=== PATIENT | male | born 2000 | race Caucasian/White ===

== ENCOUNTER 2022-07-23 05:44 | Emergency (ER) | payer OTHER, MEDICAID, SELFPAY ==
[2022-07-23] VITALS (44 sets, daily range): BP systolic 102–148; BP diastolic 56–93; PULSE 71–129; RESP 14–50; TEMP 32–37; O2SAT 89–100; BMI 44.8
--- NOTE | 2022-07-23 06:42 | DI.RAD.S_ITS ---
PROCEDURE: XR CHEST 1V INDICATIONS: SOB TECHNIQUE: One view of the chest was acquired. COMPARISON: None. FINDINGS: Surgical changes and devices: None. Lungs and pleura: Extensive airspace opacities are noted throughout right lung more prominent in right lower lobe. No significant pleural effusions or pneumothorax. Mediastinum: Mediastinal contours appear normal. Heart size is markedly enlarged. Bones and chest wall: No suspicious bony lesions. Overlying soft tissues appear unremarkable. IMPRESSION: Suggestion of multilobar infiltrates involving right lung. No significant pleural effusion or gross pneumothorax. Cardiomegaly. Dictated by: Massimo Yu M.D. on 07/23/2022 at 7:49 Approved by: Massimo Yu M.D. on 07/23/2022 at 7:50
--- NOTE | 2022-07-23 08:26 | ED.SOB ---
HPI - SOB/Dyspnea General Chief Complaint: Shortness of Breath/Dyspnea Stated Complaint: SOB for few weeks, R foot swelling Time Seen by Provider: 07/23/22 06:41 Source: patient and family Mode of arrival: Ambulatory Limitations: no limitations History of Present Illness HPI Narrative: Patient is a 21-year-old male who presents with increasing shortness of breath with exertion ongoing for about a month. He says it started off with what he thought was just cold however at work he has noticed he has significant shortness of breath with exertion and orthopnea. 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 He is also noticed that his right leg is swollen. He denies any recent travel fevers chills or sweats. He is on methylprednisone along with an albuterol inhaler. He reports the methylprednisone seems to be working. However he is noted to be quite tachycardic here in the ED heart rate 115-120. He denies any chest pain. Denies any drug use Related Data Home Medications Medication Instructions Recorded Confirmed No Known Home Medications 07/23/22 07/23/22 Allergies Allergy/AdvReac Type Severity Reaction Status Date / Time No Known Drug Allergies Allergy Verified 07/23/22 09:22 Review of Systems Review of Systems ROS Unobtainable: All systems reviewed & are unremarkable except as noted in HPI and below Patient History Social History Smoking Status: Never smoker Smoking Status: Never smoker Substance Use Type: does not use Exam Initial Vital Signs Initial Vital Signs: Vital Signs Temperature 98.6 F 07/23/22 05:58 Pulse Rate 115 H 07/23/22 05:58 Respiratory Rate 24 07/23/22 05:58 Blood Pressure 124/79 07/23/22 05:58 Pulse Oximetry 95 07/23/22 05:58 Oxygen Delivery Method Room Air 07/23/22 05:58 GENERAL: Alert 21-year-old male and in no acute distress. HEENT: Head atraumatic,EOMI, pupils reactive, face symmetric, moist mucous membranes CARDIOVASCULAR: Tachycardic regular RESPIRATORY: Breath sounds equal bilaterally, no wheezes rales or rhonchi. No conversational dyspnea ABDOMEN: Soft, nontender. Normoactive bowel sounds all 4 quadrants. No guarding or rebound. : No CVA tenderness EXTREMITIES: Normal range of motion, no clubbing. Right foot is noted to be swollen but no calf pain distal pedal pulse intact Neurovascularly intact NEUROLOGICAL: Alert and oriented x4.Normal gait and speech. Cranial nerves II through XII grossly intact. SKIN: Warm, dry, no laceration, no petechiae, no rashes or lesions. Course Orders Ordered: ED Orders 07/23/22 09:54 CT angio chest PE protocol Stat 07/23/22 11:16 Blood Culture Stat 07/23/22 11:30 EC echo doppler complete Stat 07/23/22 11:31 Trop I [Troponin I] Stat 07/23/22 14:25 Respiratory Panel (Film Array) Stat 07/23/22 15:02 Urine Drug Screen, Rapid Stat Discontinued Medications Albuterol/Ipratropium (Albuterol/Ipratropium 3 Ml Ampul) 3 ml INH NOW ONE Stop: 07/23/22 08:27 Last Admin: 07/23/22 08:48 Dose: 3 ml Documented By: MONICA Furosemide (Furosemide 40 Mg/4 Ml Vial) 40 mg IV NOW ONE Stop: 07/23/22 12:12 Last Admin: 07/23/22 12:50 Dose: 40 mg Documented By: NR Sodium Chloride (Normal Saline 0.9%) 1,000 mls @ 1,000 mls/hr IV BOLUS ONE Stop: 07/23/22 09:25 Last Infusion: 07/23/22 11:20 Dose: 0 mls/hr Documented By: Admin: 07/23/22 09:22 Dose: 1,000 mls/hr Documented By: CARLOS ALBERTO Ceftriaxone Sodium 2,000 mg/ (Sodium Chloride) 100 mls @ 200 mls/hr IV NOW ONE Stop: 07/23/22 11:01 Last Infusion: 07/23/22 12:07 Dose: 0 mls/hr Documented By: Admin: 07/23/22 11:28 Dose: 200 mls/hr Documented By: NR Azithromycin 500 mg/ Dextrose 250 mls @ 250 mls/hr IV NOW ONE Stop: 07/23/22 11:01 Last Infusion: 07/23/22 13:55 Dose: 0 mls/hr Documented By: Admin: 07/23/22 12:49 Dose: 250 mls/hr Documented By: NR Vital Signs Vital signs: Vital Signs - 8 hr 07/23/22 10:30 07/23/22 10:32 07/23/22 10:32 Pulse Rate 116 H 117 H Respiratory Rate 34 H 39 H Blood Pressure 102/73 Pulse Oximetry 93 93 Oxygen Delivery Method Fraction of Inspired Oxygen 07/23/22 11:00 07/23/22 11:01 07/23/22 11:01 Pulse Rate 117 H 117 H Respiratory Rate 28 H 30 H Blood Pressure 124/78 Pulse Oximetry 94 93 Oxygen Delivery Method Fraction of Inspired Oxygen 07/23/22 11:30 07/23/22 12:00 07/23/22 12:30 Pulse Rate 119 H 119 H Respiratory Rate 36 H 29 H Blood Pressure 125/88 Pulse Oximetry 93 92 Oxygen Delivery Method Fraction of Inspired Oxygen 07/23/22 12:30 07/23/22 12:45 07/23/22 12:45 Pulse Rate 116 H 115 H Respiratory Rate 32 H 39 H Blood Pressure 126/68 Pulse Oximetry 92 93 Oxygen Delivery Method Room Air Fraction of Inspired Oxygen 07/23/22 13:00 07/23/22 13:00 07/23/22 13:15 Pulse Rate 126 H Respiratory Rate 43 H Blood Pressure 140/70 130/68 Pulse Oximetry 89 L Oxygen Delivery Method Room Air Fraction of Inspired Oxygen 07/23/22 13:15 07/23/22 13:30 07/23/22 13:30 Pulse Rate 123 H 127 H Respiratory Rate 30 H 39 H Blood Pressure 107/65 Pulse Oximetry 95 95 Oxygen Delivery Method Fraction of Inspired Oxygen 07/23/22 14:11 07/23/22 13:46 07/23/22 13:46 Pulse Rate 129 H Respiratory Rate Blood Pressure 107/65 105/56 L Pulse Oximetry 96 Oxygen Delivery Method Fraction of Inspired Oxygen 30 07/23/22 14:00 07/23/22 14:16 07/23/22 14:16 Pulse Rate 123 H 124 H Respiratory Rate Blood Pressure 148/77 H Pulse Oximetry 97 96 Oxygen Delivery Method BiPAP Fraction of Inspired Oxygen 07/23/22 14:30 07/23/22 14:46 07/23/22 14:46 Pulse Rate 122 H 121 H Respiratory Rate 50 H 34 H Blood Pressure 117/70 Pulse Oximetry 97 Oxygen Delivery Method Fraction of Inspired Oxygen 07/23/22 15:00 07/23/22 15:01 07/23/22 15:01 Pulse Rate 120 H 121 H Respiratory Rate 44 H 45 H Blood Pressure 119/86 Pulse Oximetry 96 97 Oxygen Delivery Method Fraction of Inspired Oxygen 07/23/22 15:15 07/23/22 15:15 07/23/22 15:29 Pulse Rate 118 H Respiratory Rate 36 H Blood Pressure 120/63 120/63 Pulse Oximetry 100 Oxygen Delivery Method Fraction of Inspired Oxygen 30 07/23/22 15:30 07/23/22 15:30 07/23/22 15:45 Pulse Rate 119 H 118 H Respiratory Rate 35 H 41 H Blood Pressure 120/59 L Pulse Oximetry 98 96 Oxygen Delivery Method Fraction of Inspired Oxygen 07/23/22 15:45 07/23/22 16:00 07/23/22 16:00 Pulse Rate 117 H Respiratory Rate 22 Blood Pressure 113/61 119/70 Pulse Oximetry 97 Oxygen Delivery Method Fraction of Inspired Oxygen 07/23/22 16:15 07/23/22 16:15 07/23/22 16:30 Pulse Rate 113 H Respiratory Rate 25 H Blood Pressure 107/76 110/72 Pulse Oximetry 97 Oxygen Delivery Method Fraction of Inspired Oxygen 07/23/22 16:30 07/23/22 16:46 07/23/22 16:46 Pulse Rate 114 H 117 H Respiratory Rate 24 32 H Blood Pressure 122/62 Pulse Oximetry 97 98 Oxygen Delivery Method Fraction of Inspired Oxygen 07/23/22 17:00 07/23/22 17:13 07/23/22 17:13 Pulse Rate 117 H 117 H Respiratory Rate 24 Blood Pressure 110/77 Pulse Oximetry 97 99 Oxygen Delivery Method Fraction of Inspired Oxygen 07/23/22 17:15 07/23/22 17:15 07/23/22 17:30 Pulse Rate 117 H Respiratory Rate Blood Pressure 108/86 109/85 Pulse Oximetry 97 Oxygen Delivery Method Fraction of Inspired Oxygen 07/23/22 17:30 Pulse Rate 116 H Respiratory Rate Blood Pressure Pulse Oximetry 96 Oxygen Delivery Method Fraction of Inspired Oxygen MDM - SOB/Dyspnea Lab Data 07/23/22 08:50 07/23/22 08:50 Labs: Lab Results 07/23/22 07/23/22 07/23/22 Range/Units 08:50 08:50 08:50 WBC 12.6 H (4.5-11.0) X10^3/uL RBC 4.80 (4.5-5.9) X10^6/uL Hgb 14.3 (13.5-17.5) g/dL Hct 41.9 (41-53) % MCV 87.2 (80-100) fL MCH 29.8 (26-34) PG MCHC 34.2 (30-36) % RDW 14.2 (11.6-14.8) % Plt Count 442 H (150-400) X10^3/uL Neut % (Auto) 88.0 H (50-75) % Lymph % (Auto) 7.6 L (25-40) % [place] % (Auto) 3.8 (3-14) % Eos % (Auto) 0.4 L (2-4) % Baso % (Auto) 0.2 (0-2) % Neut # (Auto) 89080 H (4681-0376) /uL Lymph # (Auto) 1000 L (3896-0053) /uL [place] # (Auto) 500 (0-900) /uL Eos # (Auto) 0 (0-450) /uL Baso # (Auto) 0 (0-100) /uL D-Dimer 656 H (<500) ng/ml Sodium 139 (137-145) mmol/L Potassium 4.2 (3.4-5.1) mmol/L Chloride 108 H (98-107) mmol/L Carbon Dioxide 24 (22-32) mmol/L BUN 22 H (9-20) mg/dL Creatinine 0.85 (0.66-1.25) mg/dL Estimated GFR > 60 (>60) mL/min BUN/Creatinine Ratio 25.9 H (6-22) Glucose 110 H (70-100) mg/dL Lactate (0.7-2.1) mmol/L Calcium 8.4 (8.4-10.2) mg/dL Total Bilirubin 0.6 (0.2-1.3) mg/dL AST 21 (17-59) IU/L ALT 28 (<50) IU/L Alkaline Phosphatase 57 (38-126) U/L Total Creatine Kinase (55-170) U/L CK-MB (CK-2) CK-MB (CK-2) Rel Index Troponin I (0.01-0.034) ng/mL NT-Pro-B Natriuret Pep (<125) pg/mL Total Protein 6.0 L (6.3-8.2) g/dL Albumin 3.3 L (3.5-5.0) g/dL Globulin 2.7 (1.7-4.1) g/dL Albumin/Globulin Ratio 1.2 (1.0-2.8) U Opiates 300ng/mL cut (Negative) Ur Oxycodone Screen (Negative) Urine Methadone Screen (Negative) Ur Barbiturates Screen (Negative) U Tricyclic Antidepress (Negative) Ur Phencyclidine Scrn (Negative) Ur Amphetamines Screen (Negative) U Methamphetamines Scrn (Negative) Ur MDMA Scrn (Ecstasy) (Negative) U Benzodiazepines Scrn (Negative) Urine Cocaine Screen (Negative) U Marijuana (THC) Screen (Negative) Chlamy pneumoniae PCR (Not Detect) Adenovirus (PCR) (Not Detect) B. pertussis DNA (PCR) (Not Detecte) B.parapertussis DNA PCR (Not Detecte) Coronavirus OC43 (PCR) (Not Detect) Coronavirus HKU1 (PCR) (Not Detect) Coronavirus 229E (PCR) (Not Detect) SARS-CoV-2 (PCR) (Not Detecte) Coronavirus NL63 (PCR) (Not Detect) Human Metapneumovir PCR (Not Detect) Influenza Type A (PCR) (Not Detect) Influenza Type B (PCR) (Not Detect) M. pneumoniae (PCR) (Not Detect) Parainfluenza 1 (PCR) (Not Detect) Parainfluenza 2 (PCR) (Not Detect) Parainfluenza 3 (PCR) (Not Detect) Parainfluenza 4 (PCR) (Not Detect) RSV (PCR) (Not Detect) Entero/Rhino (PCR) (Not Detect) 07/23/22 07/23/22 07/23/22 Range/Units 08:50 08:50 08:50 WBC (4.5-11.0) X10^3/uL RBC (4.5-5.9) X10^6/uL Hgb (13.5-17.5) g/dL Hct (41-53) % MCV (80-100) fL MCH (26-34) PG MCHC (30-36) % RDW (11.6-14.8) % Plt Count (150-400) X10^3/uL Neut % (Auto) (50-75) % Lymph % (Auto) (25-40) % [place] % (Auto) (3-14) % Eos % (Auto) (2-4) % Baso % (Auto) (0-2) % Neut # (Auto) (1808-1127) /uL Lymph # (Auto) (8475-2741) /uL [place] # (Auto) (0-900) /uL Eos # (Auto) (0-450) /uL Baso # (Auto) (0-100) /uL D-Dimer (<500) ng/ml Sodium (137-145) mmol/L Potassium (3.4-5.1) mmol/L Chloride (98-107) mmol/L Carbon Dioxide (22-32) mmol/L BUN (9-20) mg/dL Creatinine (0.66-1.25) mg/dL Estimated GFR (>60) mL/min BUN/Creatinine Ratio (6-22) Glucose (70-100) mg/dL Lactate 1.4 (0.7-2.1) mmol/L Calcium (8.4-10.2) mg/dL Total Bilirubin (0.2-1.3) mg/dL AST (17-59) IU/L ALT (<50) IU/L Alkaline Phosphatase (38-126) U/L Total Creatine Kinase 42 L (55-170) U/L CK-MB (CK-2) TNP CK-MB (CK-2) Rel Index TNP Troponin I 0.179 H* (0.01-0.034) ng/mL NT-Pro-B Natriuret Pep 7510 H (<125) pg/mL Total Protein (6.3-8.2) g/dL Albumin (3.5-5.0) g/dL Globulin (1.7-4.1) g/dL Albumin/Globulin Ratio (1.0-2.8) U Opiates 300ng/mL cut (Negative) Ur Oxycodone Screen (Negative) Urine Methadone Screen (Negative) Ur Barbiturates Screen (Negative) U Tricyclic Antidepress (Negative) Ur Phencyclidine Scrn (Negative) Ur Amphetamines Screen (Negative) U Methamphetamines Scrn (Negative) Ur MDMA Scrn (Ecstasy) (Negative) U Benzodiazepines Scrn (Negative) Urine Cocaine Screen (Negative) U Marijuana (THC) Screen (Negative) Chlamy pneumoniae PCR (Not Detect) Adenovirus (PCR) (Not Detect) B. pertussis DNA (PCR) (Not Detecte) B.parapertussis DNA PCR (Not Detecte) Coronavirus OC43 (PCR) (Not Detect) Coronavirus HKU1 (PCR) (Not Detect) Coronavirus 229E (PCR) (Not Detect) SARS-CoV-2 (PCR) (Not Detecte) Coronavirus NL63 (PCR) (Not Detect) Human Metapneumovir PCR (Not Detect) Influenza Type A (PCR) (Not Detect) Influenza Type B (PCR) (Not Detect) M. pneumoniae (PCR) (Not Detect) Parainfluenza 1 (PCR) (Not Detect) Parainfluenza 2 (PCR) (Not Detect) Parainfluenza 3 (PCR) (Not Detect) Parainfluenza 4 (PCR) (Not Detect) RSV (PCR) (Not Detect) Entero/Rhino (PCR) (Not Detect) 07/23/22 07/23/22 07/23/22 Range/Units 11:31 14:25 15:02 WBC (4.5-11.0) X10^3/uL RBC (4.5-5.9) X10^6/uL Hgb (13.5-17.5) g/dL Hct (41-53) % MCV (80-100) fL MCH (26-34) PG MCHC (30-36) % RDW (11.6-14.8) % Plt Count (150-400) X10^3/uL Neut % (Auto) (50-75) % Lymph % (Auto) (25-40) % [place] % (Auto) (3-14) % Eos % (Auto) (2-4) % Baso % (Auto) (0-2) % Neut # (Auto) (9721-0983) /uL Lymph # (Auto) (2589-5743) /uL [place] # (Auto) (0-900) /uL Eos # (Auto) (0-450) /uL Baso # (Auto) (0-100) /uL D-Dimer (<500) ng/ml Sodium (137-145) mmol/L Potassium (3.4-5.1) mmol/L Chloride (98-107) mmol/L Carbon Dioxide (22-32) mmol/L BUN (9-20) mg/dL Creatinine (0.66-1.25) mg/dL Estimated GFR (>60) mL/min BUN/Creatinine Ratio (6-22) Glucose (70-100) mg/dL Lactate (0.7-2.1) mmol/L Calcium (8.4-10.2) mg/dL Total Bilirubin (0.2-1.3) mg/dL AST (17-59) IU/L ALT (<50) IU/L Alkaline Phosphatase (38-126) U/L Total Creatine Kinase (55-170) U/L CK-MB (CK-2) CK-MB (CK-2) Rel Index Troponin I 0.152 H* (0.01-0.034) ng/mL NT-Pro-B Natriuret Pep (<125) pg/mL Total Protein (6.3-8.2) g/dL Albumin (3.5-5.0) g/dL Globulin (1.7-4.1) g/dL Albumin/Globulin Ratio (1.0-2.8) U Opiates 300ng/mL cut Negative (Negative) Ur Oxycodone Screen Negative (Negative) Urine Methadone Screen Negative (Negative) Ur Barbiturates Screen Negative (Negative) U Tricyclic Antidepress Negative (Negative) Ur Phencyclidine Scrn Negative (Negative) Ur Amphetamines Screen Negative (Negative) U Methamphetamines Scrn Negative (Negative) Ur MDMA Scrn (Ecstasy) Negative (Negative) U Benzodiazepines Scrn Negative (Negative) Urine Cocaine Screen Negative (Negative) U Marijuana (THC) Screen Negative (Negative) Chlamy pneumoniae PCR Not detected (Not Detect) Adenovirus (PCR) Not detected (Not Detect) B. pertussis DNA (PCR) Not detected (Not Detecte) B.parapertussis DNA PCR Not detected (Not Detecte) Coronavirus OC43 (PCR) Not detected (Not Detect) Coronavirus HKU1 (PCR) Not detected (Not Detect) Coronavirus 229E (PCR) Not detected (Not Detect) SARS-CoV-2 (PCR) Not detected (Not Detecte) Coronavirus NL63 (PCR) Not detected (Not Detect) Human Metapneumovir PCR Not detected (Not Detect) Influenza Type A (PCR) Not detected (Not Detect) Influenza Type B (PCR) Not detected (Not Detect) M. pneumoniae (PCR) Not detected (Not Detect) Parainfluenza 1 (PCR) Not detected (Not Detect) Parainfluenza 2 (PCR) Not detected (Not Detect) Parainfluenza 3 (PCR) Not detected (Not Detect) Parainfluenza 4 (PCR) Not detected (Not Detect) RSV (PCR) Not detected (Not Detect) Entero/Rhino (PCR) Detected H (Not Detect) Imaging Data Chest x-ray: Radiologist's Impression: PROCEDURE:? XR CHEST 1V ? INDICATIONS:? SOB ? TECHNIQUE:? One view of the chest was acquired.? ? COMPARISON:? None. ? FINDINGS:? ? Surgical changes and devices:? None.? ? Lungs and pleura:? Extensive airspace opacities are noted throughout right lung more prominent in right lower lobe.? No significant pleural effusions or pneumothorax.? ? Mediastinum:? Mediastinal contours appear normal.? Heart size is markedly enlarged.? ? Bones and chest wall:? No suspicious bony lesions.? Overlying soft tissues appear unremarkable.? ? IMPRESSION:? Suggestion of multilobar infiltrates involving right lung.? No significant pleural effusion or gross pneumothorax.? Cardiomegaly. ? ? Dictated by: Massimo Yu M.D. on 07/23/2022 at 7:49 ? ? Approved by: Massimo Yu M.D. on 07/23/2022 at 7:50 CT scan - chest: Radiologist's Impression: PROCEDURE:? CT ANGIO CHEST PE PROTOCOL ? INDICATIONS:? tachy sob ? TECHNIQUE:? After the administration of intravenous contrast, 2 mm thick sections acquired from the pulmonary apices to the posterior costophrenic angles.? 3-dimensional maximum intensity projection (MIP) coronal and sagittal reformats were then acquired through the thorax.? For radiation dose reduction, the following was used:? automated exposure control, adjustment of mA and/or kV according to patient size.? ? COMPARISON:? None. ? FINDINGS:? Image quality:? Excellent.? ? Pulmonary arteries:? Pulmonary arteries are normal in size, and demonstrate no intraluminal filling defects to suggest central pulmonary embolism.? Pulses appropriate up to the proximal subsegmental vessel.? The distal subsegmental vessels are limited in evaluation. ? Lungs and pleura:? The central airways are patent.? There is diffuse opacities noted throughout the right lung with air bronchograms.? Additional passages are noted within the left lung most prominent at the left lung base lung base.? There is a moderate right-sided pleural effusion and small left-sided pleural effusion...... ? Mediastinum:? Heart size is normal, without pericardial effusion.? No evidence of right heart strain.? No mediastinal or hilar adenopathy.? Thoracic aorta is normal in caliber and enhancement.? Esophagus is normal in caliber, without hiatal hernia.? ? Bones and chest wall:? No suspicious bony lesions.? Ribs and thoracic spine appear intact throughout.? Thyroid gland is unremarkable.? No axillary or supraclavicular adenopathy.? ? Abdomen:? Visualized upper abdominal solid organs appear normal in the early arterial phase of enhancement.? ? IMPRESSION:? ? Findings concerning for diffuse multifocal pneumonia with moderate size right and small left sided pleural effusions. ? No evidence of acute pulmonary embolus or right heart strain. ? ? Dictated by: Ike Lyman D.O. on 07/23/2022 at 9:33 ?? Echo: Radiologist's Impression: [facility] +[facility] : ? :? [address] ? : ? : : ? :? [place] ? : ? : : ? :? [id number] ? : ? : : ? : ? Phone: [phone] : ? : +---------[phone]? [phone]? +---------+ ? Echocardiogram Report + + :Name: AYAD GONZALEZ ? Study Date: 07/23/2022 ? Height: 73 in? : :[facility] ? ? ReadingLocation: ? Weight: 339 lb : : ? Gender: Male ? BSA: 2.7 m2? ? : :: 2000? Age: 21 yrs? BP: 124/78 mmHg: :Reason For Study: CONGESTIVE HEART FAILURE ? : :Ordering Physician: KRISTINA, ? : :HAYLEY ? Performed By: Mellissa Thurston? : :Referring: HAYLEY ACEVEDO ? : + + Interpretation Summary 1) Severely enlarged left ventricle (LVEDD 7.2cm, LVEDV 271cc) with severely reduced systolic function (EF 10-15%). 2) Mildly enlarged right ventricle with mildly reduced function. 3) The left atrium is severely dilated. The right atrium is moderately dilated. 4) There is moderate functional mitral regurgitation. 5) This suggests a high right atrial pressure of 15 mm Hg. 6) There is a moderate left-sided pleural effusion. 7) No prior Echo available for comparison. ? Procedure: ? A two-dimensional transthoracic echocardiogram with color flow and Doppler was performed. The study quality was technically adequate. There is no prior echocardiogram noted for this patient. The patient was in sinus tachycardia with heart rates between 114-121 bpm during the exam. Left Ventricle: ? There is normal left ventricular wall thickness. The estimated left ventricular end diastolic volume is 271 ml. The left ventricle is moderately dilated. The ejection fraction is estimated to be 10-15%. Diastolic function could not be accurately assessed due to tachycardia. Right Ventricle: ? The right ventricle is mildly dilated. Right ventricular systolic function is mildly reduced. Atria: ? The left atrium is severely dilated. The right atrium is moderately dilated. There is no Doppler evidence for an interatrial shunt. Mitral Valve: ? The mitral valve leaflets appear tented. There is moderate mitral regurgitation. Aortic Valve: ? The aortic valve is trileaflet. The aortic valve opens well. There is no aortic valve stenosis. No aortic regurgitation is present. Tricuspid Valve: ? The tricuspid valve is normal in structure and function. There is trace tricuspid regurgitation. Pulmonary artery pressures cannot be estimated because of the lack of a measurable TR jet velocity but the IVC suggests a CVP of around 15 mmHg. Pulmonic Valve: ? The pulmonic valve leaflets are thin and pliable; valve motion is normal. There is mild pulmonic regurgitation. Great Vessels: ? The aortic root is normal size. The dimensions of the ascending aorta are normal. The IVC is dilated (diameter is greater than 2.1 cm) and it collapses less than 50% with a sniff. This suggests a high right atrial pressure of 15 mm Hg. Pericardium/ Pleura ? There is a trivial pericardial effusion noted. There is a moderate left-sided pleural effusion. ? MMode/2D Measurements & Calculations LVIDd: 7.2 cm ? LVOT diam: 2.2 cm LVIDs: 6.5 cm ? Ao root diam: 2.7 cm FS: 8.7 % ? asc Aorta Diam: 2.8 cm EPSS: 2.5 cm IVSd: 1.1 cm LVPWd: 0.89 cm LV santiago. diameter/BSA (cm/m^2): 2.7 LV sys. diameter/BSA (cm/m^2): 2.4 ? LA A2 area: 39.4 cm2? RA long axis: 6.9 cm LA A4 area: 39.3 cm2? RA area: 32.0 cm2 LA length (vol): 8.2 cm ? RA vol: 125.6 ml LA vol: 161.0 ml? RA : 46.6 ml/m2 LA vol index: 59.8 ml/m2? IVC diam: 2.6 cm ? RVD1 (basal): 4.9 cm RVD2 (mid): 3.7 cm TAPSE: 1.7 cm ? Doppler Measurements & Calculations Ao V2 max: 80.1 cm/sec? LVOT Max Jose: 51.7 cm/sec Ao V2 mean: 60.5 cm/sec ? LV V1 max P.1 mmHg Ao max P.6 mmHg ? LV V1 VTI: 7.3 cm Ao mean P.6 mmHg? MICHEAL(I,D): 2.6 cm2 Ao V2 VTI: 10.1 cm? MICHEAL(V,D): 2.4 cm2 ? sev ratio: 0.72 ? MICHEAL indexed to BSA (cm^2/m^2): 0.98 ? Med Peak E' Jose: 9.0 cm/sec ? ? ? PA V2 max: 82.6 cm/sec Lat Peak E' Jose: 17.4 cm/sec? ? ? PA V2 mean: 53.6 cm/sec MR ERO: 0.66 cm2? PA mean P.3 mmHg ? PA pr(Accel): 42.4 mmHg ? MR PISA: 7.9 cm2? SV(LVOT): 26.7 ml MR flow rate: 290.4 cm3/sec MR PISA radius: 1.1 cm ? Reading Physician:12:43 PM ECG Data Interpretation: Sinus tachycardia rate 121 IL interval 178 QRS 100 low voltage PVC noted no obvious ST MDM Narrative Medical decision making narrative: Patient is a healthy 21-year-old male without history of drug use presenting today with infectious and upper respiratory like symptoms. His x-ray shows significant probable pneumonia with cardiomegaly and he is persistently tachycardic. Initially given 1 L of IV fluids Rocephin and azithromycin. Significant labs: mild leukocytosis of 12.6 with mild left shift, no anemia, elevated troponin 0.179 trending downward 0.152 [place] 7510, lactate 1.4, creatinine 0.85, urine drug screen negative, viral panel positive for entero/rhinovirus Imaging: Chest x-ray multilobar infiltrates of right lung, CT chest no pulmonary embolism, diffuse multifocal pneumonia with small pleural effusions, echocardiogram EF 10-15% with enlarged right ventricle left atrium severely dilated with moderate functional mitral regurgitation Patient is found have new onset congestive heart failure with critical ejection fraction. Probable myocarditis. He initially was given IV fluids for possible sepsis however developed increasing shortness of breath tachypnea and worsening tachycardia. He was put on BiPAP which improved his symptoms greatly. He was also given Lasix 40 mg IV he is urinated quite a bit with it. Dr. Newman [facility] at [facility] consulted in regards to patient he also called with echocardiogram results. At this time recommends due to patient's young age critical EF recommends transferring to [facility] biopsy. Dr. Carpio [facility] updated on patient's symptoms test results kindly accepts patient Critical Care Time Critical Care Time Critical Care Time: Yes Total Critical Care Time: 60 Attestation: The high probability of a clinically significant, sudden or life threatening deterioration of the [cardiovascular] system(s) required my full and direct attention, intervention and personal management. The aggregate critical care time was 60 minutes. This time is in addition to time spent performing reported procedures but includes the following: [x] Data Review and interpretation [x] Patient assessment and monitoring of vital signs [x] Documentation [x] Medication orders and management Discharge Plan Departure Patient Disposition: Xfer Acute Care Hospital Clinical Impression: Congestive heart failure, Pneumonia, Acute upper respiratory infection Prescriptions: No Action No Known Home Medications
[2022-07-23] MEDS: ALBUTEROL/IPRATROPIUM 3 ML AMPUL INH (08:48)
[2022-07-23 09:00] LABS: Add Manual Diff / Slide Review NO; Basophils Absolute Auto 0 /uL (0-100); Basophils Percent Auto 0.2 % (0-2); Eosinophils Absolute Auto 0 /uL (0-450); Eosinophils Percent Auto 0.4 % (2-4); Hematocrit 41.9 % (41-53); Hemoglobin 14.3 g/dL (13.5-17.5); Lymphocytes Absolute Auto 1000 /uL (1100-4500); Lymphocytes Percent Auto 7.6 % (25-40); Mean Corpuscular HGB Conc 34.2 % (30-36); Mean Corpuscular Hemoglobin 29.8 PG (26-34); Mean Corpuscular Volume 87.2 fL (80-100); Monocytes Absolute Auto 500 /uL (0-900); Monocytes Percent Auto 3.8 % (3-14); Neutrophils Absolute Auto 11100 /uL (1500-7000); Platelet Count 442 X10^3/uL (150-400); Red Cell Distribution Width 14.2 % (11.6-14.8); White Blood Cell Count 12.6 X10^3/uL (4.5-11.0)
[2022-07-23 09:18] LABS: Alanine Aminotransferase 28 IU/L (<50); Albumin 3.3 g/dL (3.5-5.0); Albumin Globulin Ratio 1.2 (1.0-2.8); Alkaline Phosphatase 57 U/L (38-126); Aspartate Aminotransferase 21 IU/L (17-59); BUN Creatinine Ratio 25.9 (6-22); Bilirubin Total 0.6 mg/dL (0.2-1.3); Blood Urea Nitrogen 22 mg/dL (9-20); Calcium 8.4 mg/dL (8.4-10.2); Carbon Dioxide 24 mmol/L (22-32); Chloride 108 mmol/L (98-107); Creatine Kinase 42 U/L (55-170); Estimated Glomerular Filt Rate > 60 mL/min (>60); Globulin 2.7 g/dL (1.7-4.1); Glucose 110 mg/dL (70-100); HEMOLYSIS < 15 (0-50); Lactate (Lactic Acid) 1.4 mmol/L (0.7-2.1); Potassium 4.2 mmol/L (3.4-5.1); Sodium 139 mmol/L (137-145)
[2022-07-23] MEDS: SODIUM CHLORIDE 0.9% 1,000 ML 1000 ML IV (09:22)
[2022-07-23 09:27] LABS: NT-proBNP (BNP-Adult 18+) 7510 pg/mL (<125)
[2022-07-23 09:38] LABS: D Dimer 656 ng/ml (<500)
--- NOTE | 2022-07-23 09:54 | DI.CT.S_ITS ---
PROCEDURE: CT ANGIO CHEST PE PROTOCOL INDICATIONS: tachy sob TECHNIQUE: After the administration of intravenous contrast, 2 mm thick sections acquired from the pulmonary apices to the posterior costophrenic angles. 3-dimensional maximum intensity projection (MIP) coronal and sagittal reformats were then acquired through the thorax. For radiation dose reduction, the following was used: automated exposure control, adjustment of mA and/or kV according to patient size. COMPARISON: None. FINDINGS: Image quality: Excellent. Pulmonary arteries: Pulmonary arteries are normal in size, and demonstrate no intraluminal filling defects to suggest central pulmonary embolism. Pulses appropriate up to the proximal subsegmental vessel. The distal subsegmental vessels are limited in evaluation. Lungs and pleura: The central airways are patent. There is diffuse opacities noted throughout the right lung with air bronchograms. Additional passages are noted within the left lung most prominent at the left lung base lung base. There is a moderate right-sided pleural effusion and small left-sided pleural effusion...... Mediastinum: Heart size is normal, without pericardial effusion. No evidence of right heart strain. No mediastinal or hilar adenopathy. Thoracic aorta is normal in caliber and enhancement. Esophagus is normal in caliber, without hiatal hernia. Bones and chest wall: No suspicious bony lesions. Ribs and thoracic spine appear intact throughout. Thyroid gland is unremarkable. No axillary or supraclavicular adenopathy. Abdomen: Visualized upper abdominal solid organs appear normal in the early arterial phase of enhancement. IMPRESSION: Findings concerning for diffuse multifocal pneumonia with moderate size right and small left sided pleural effusions. No evidence of acute pulmonary embolus or right heart strain. Dictated by: Ike Lyman D.O. on 07/23/2022 at 9:33 Approved by: Ike Lyman D.O. on 07/23/2022 at 9:40
[2022-07-23 09:57] LABS: Troponin I 0.179 ng/mL (0.01-0.034)
[2022-07-23] MEDS: cefTRIAXone 2,000 MG in SODIUM CHLORIDE 0.9% 100 ML 200 MG IV (11:28)
--- NOTE | 2022-07-23 11:30 | DI.ECHO.S_ITS ---
[facility] [facility] +---------+ Hospital +---------+ : : [address] : : : : [id number] : : : : Phone: [phone]+ Echocardiogram Report + + :Name: AYAD GONZALEZ Study Date: 07/23/2022 Height: 73 in : :[facility] ReadingLocation: Weight: 339 lb : : Gender: Male BSA: 2.7 m2 : :: 2000 Age: 21 yrs BP: 124/78 mmHg: :Reason For Study: CONGESTIVE HEART FAILURE : :Ordering Physician: KRISTINA, : :MELANIA Performed By: Mellissa Thurston : :Referring: MELANIA ACEVEDO : + + Interpretation Summary 1) Severely enlarged left ventricle (LVEDD 7.2cm, LVEDV 271cc) with severely reduced systolic function (EF 10-15%). 2) Mildly enlarged right ventricle with mildly reduced function. 3) The left atrium is severely dilated. The right atrium is moderately dilated. 4) There is moderate functional mitral regurgitation. 5) This suggests a high right atrial pressure of 15 mm Hg. 6) There is a moderate left-sided pleural effusion. 7) No prior Echo available for comparison. Procedure: A two-dimensional transthoracic echocardiogram with color flow and Doppler was performed. The study quality was technically adequate. There is no prior echocardiogram noted for this patient. The patient was in sinus tachycardia with heart rates between 114-121 bpm during the exam. Left Ventricle: There is normal left ventricular wall thickness. The estimated left ventricular end diastolic volume is 271 ml. The left ventricle is moderately dilated. The ejection fraction is estimated to be 10-15%. Diastolic function could not be accurately assessed due to tachycardia. Right Ventricle: The right ventricle is mildly dilated. Right ventricular systolic function is mildly reduced. Atria: The left atrium is severely dilated. The right atrium is moderately dilated. There is no Doppler evidence for an interatrial shunt. Mitral Valve: The mitral valve leaflets appear tented. There is moderate mitral regurgitation. Aortic Valve: The aortic valve is trileaflet. The aortic valve opens well. There is no aortic valve stenosis. No aortic regurgitation is present. Tricuspid Valve: The tricuspid valve is normal in structure and function. There is trace tricuspid regurgitation. Pulmonary artery pressures cannot be estimated because of the lack of a measurable TR jet velocity but the IVC suggests a CVP of around 15 mmHg. Pulmonic Valve: The pulmonic valve leaflets are thin and pliable; valve motion is normal. There is mild pulmonic regurgitation. Great Vessels: The aortic root is normal size. The dimensions of the ascending aorta are normal. The IVC is dilated (diameter is greater than 2.1 cm) and it collapses less than 50% with a sniff. This suggests a high right atrial pressure of 15 mm Hg. Pericardium/ Pleura There is a trivial pericardial effusion noted. There is a moderate left-sided pleural effusion. MMode/2D Measurements & Calculations LVIDd: 7.2 cm LVOT diam: 2.2 cm LVIDs: 6.5 cm Ao root diam: 2.7 cm FS: 8.7 % asc Aorta Diam: 2.8 cm EPSS: 2.5 cm IVSd: 1.1 cm LVPWd: 0.89 cm LV santiago. diameter/BSA (cm/m^2): 2.7 LV sys. diameter/BSA (cm/m^2): 2.4 LA A2 area: 39.4 cm2 RA long axis: 6.9 cm LA A4 area: 39.3 cm2 RA area: 32.0 cm2 LA length (vol): 8.2 cm RA vol: 125.6 ml LA vol: 161.0 ml RA : 46.6 ml/m2 LA vol index: 59.8 ml/m2 IVC diam: 2.6 cm RVD1 (basal): 4.9 cm RVD2 (mid): 3.7 cm TAPSE: 1.7 cm Doppler Measurements & Calculations Ao V2 max: 80.1 cm/sec LVOT Max Jose: 51.7 cm/sec Ao V2 mean: 60.5 cm/sec LV V1 max P.1 mmHg Ao max P.6 mmHg LV V1 VTI: 7.3 cm Ao mean P.6 mmHg MICHEAL(I,D): 2.6 cm2 Ao V2 VTI: 10.1 cm MICHEAL(V,D): 2.4 cm2 sev ratio: 0.72 MICHEAL indexed to BSA (cm^2/m^2): 0.98 Med Peak E' Jose: 9.0 cm/sec PA V2 max: 82.6 cm/sec Lat Peak E' Jose: 17.4 cm/sec PA V2 mean: 53.6 cm/sec MR ERO: 0.66 cm2 PA mean P.3 mmHg PA pr(Accel): 42.4 mmHg MR PISA: 7.9 cm2 SV(LVOT): 26.7 ml MR flow rate: 290.4 cm3/sec MR PISA radius: 1.1 cm Reading Physician:12:43 PM
[2022-07-23 12:10] LABS: Troponin I 0.152 ng/mL (0.01-0.034)
[2022-07-23] MEDS: AZITHROMYCIN 500 MG in DEXTROSE 5% IN WATER 250 ML 250 MG IV (12:49)
[2022-07-23] MEDS: FUROSEMIDE 40 MG/4 ML VIAL IV (12:50)
[2022-07-23 15:15] LABS: UR Morphine/Opiate cutoff 300 Negative (Negative); Ur Creatinine Normal (Normal); Ur Specific Gravity Normal (Normal); Urine Amphetamines Negative (Negative); Urine Barbiturates Negative (Negative); Urine Benzodiazepines Negative (Negative); Urine Cocaine Negative (Negative); Urine MDMA Negative (Negative); Urine Methadone Negative (Negative); Urine Methamphetamines Negative (Negative); Urine Oxycodone Negative (Negative); Urine Phencyclidine Negative (Negative); Urine Tetrahydrocannabinol Negative (Negative); Urine Tricyclic Antidepressant Negative (Negative); Urine pH Normal (Normal)
[2022-07-23 15:23] LABS: Adenovirus Not Detected (Not Detect); B. parapertussis Not Detected (Not Detecte); Bordetella pertussis Not Detected (Not Detecte); Chlamydophila pneumoniae Not Detected (Not Detect); Coronavirus 229E Not Detected (Not Detect); Coronavirus HKU1 Not Detected (Not Detect); Coronavirus NL 63 Not Detected (Not Detect); Coronavirus OC43 Not Detected (Not Detect); Human Metapneumovirus Not Detected (Not Detect); Human Rhinovirus/Enterovirus Detected (Not Detect); Influenza A Not Detected (Not Detect); Influenza B Not Detected (Not Detect); Mycoplasma pneumoniae Not Detected (Not Detect); Parainfluenza Virus 1 Not Detected (Not Detect); Parainfluenza Virus 2 Not Detected (Not Detect); Parainfluenza Virus 3 Not Detected (Not Detect); Parainfluenza Virus 4 Not Detected (Not Detect); Respiratory Syncytial Virus Not Detected (Not Detect); SARS- CoV-2 Not Detected (Not Detecte)
== END 2022-07-23 17:55 | disposition short-term general hospital (02) ==
PROVIDERS: Emergency Provider Emergency Medicine
DX: I50.9 Heart failure, unspecified (principal); J18.9 Pneumonia, unspecified organism; R00.0 Tachycardia, unspecified; J06.9 Acute upper respiratory infection, unspecified; B34.8 Other viral infections of unspecified site; Z20.822 Contact with and (suspected) exposure to COVID-19
CPT/HCPCS: 36415; 71045; 71275; 80053; 80305; 82550; 83605; 83880; 84484; 85025; 85379; 87040; 87633; 93005; 93010; 93306; 94640; 94660; 96361; 96365; 96367; 96375; 99285; 99291; J0696; J1940; Q9967